=== PATIENT | male | born 2000 | race African-American/Black ===

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

== ENCOUNTER 2020-07-14 14:39 | Emergency (ER) | payer MEDICAID ==
[~2020-07-14] VITALS: Ht 170.2 cm; Wt 81.6 kg
[2020-07-14] MEDS ORDERED: ETOMIDATE (2MG/ML) 20ML VIAL IV ONE ×2 (15:03→15:45)
[2020-07-14 15:20] VITALS: BP 142/67
== END 2020-07-14 17:32 | disposition home or self-care (01) ==
LOC: ER 14:39 → EDBD 14:39 → ER 17:32
DX: S43.004A Unspecified dislocation of right shoulder joint, initial encounter (principal); W51.XXXA Accidental striking against or bumped into by another person, initial encounter; Y93.71 Activity, boxing; Y92.89 Other specified places as the place of occurrence of the external cause; Y99.8 Other external cause status
CPT/HCPCS: 23650; 73030; 99152

== ENCOUNTER 2021-04-26 01:20 | Emergency (ER) | payer MEDICAID ==
[~2021-04-26] VITALS: Ht 170.2 cm; Wt 83.9 kg
[2021-04-26 01:36] VITALS: BP 126/77
== END 2021-04-26 02:57 | disposition left against medical advice (07) ==
LOC: ER 01:20
DX: S61.212A Laceration without foreign body of right middle finger without damage to nail, initial encounter (principal); Z53.21 Procedure and treatment not carried out due to patient leaving prior to being seen by health care provider; W25.XXXA Contact with sharp glass, initial encounter; Y93.89 Activity, other specified; Y92.89 Other specified places as the place of occurrence of the external cause; Y99.8 Other external cause status